=== PATIENT | female | born 1965 | race Caucasian/White ===

== ENCOUNTER 2017-07-21 15:34 | Inpatient (IN) | payer MEDICAID, OTHER ==
[~2017-07-21] VITALS: Ht 149.9 cm; Wt 66.9 kg
--- NOTE | 2017-07-21 15:40 | NUR ---
RT UPPER QUADRANT ABD PAIN X LAST NIGHT, NAD NOTED, VSS, RESP EVEN AND UNLABORED, PT PUT ON MONITOR, WAITING FOR MD WALKER
[2017-07-21] MEDS ORDERED: ONDANSETRON HCL/PF 4 MG/2 ML VIAL ONE (15:52)
[2017-07-21] MEDS ORDERED: HYDROMORPHONE INJ 0.5 MG/0.5 ML SYRINGE ONE ×2 (15:53→18:51)
[2017-07-21] MEDS ORDERED: HYDROMORPHONE INJ 2 MG/ML DISP.SYRIN IV ONE (16:00)
[2017-07-21] MEDS ORDERED: ONDANSETRON HCL/PF 4 MG/2 ML VIAL IVP ONE (16:00)
[2017-07-21] MEDS ORDERED: IV NS 0.9% 1,000 ML BAG IV ONE (16:00)
[2017-07-21 16:07] LABS: BASOPHILS # (AUTO) 0.1 /CMM (0.0-0.2); BASOPHILS % (AUTO) 1.6 % (0.0-2.0); EOSINOPHILS % (AUTO) 0.6 % (0.0-6.0); HEMATOCRIT 37 % (33-45); HEMOGLOBIN 13.1 g/dL (11.5-14.8); LYMPHOCYTES # (AUTO) 1.6 /CMM (0.8-4.8); LYMPHOCYTES % (AUTO) 26.1 % (20.0-44.0); MEAN CORPUSCULAR HEMOGLOBIN 32 PG (26.0-33.0); MEAN CORPUSCULAR HGB CONC 35 g/dl (31.0-36.0); MEAN CORPUSCULAR VOLUME 90 fL (82-100); MONOCYTES # (AUTO) 0.2 /CMM (0.1-1.30); MONOCYTES % (AUTO) 4.1 % (2.0-12.0); NEUTROPHILS # (AUTO) 4.2 /CMM (1.8-8.9); NEUTROPHILS % (AUTO) 67.6 % (43.0-81.0); PLATELET COUNT (AUTO) 277 /CMM (150-450); RDW COEFFICIENT OF VARIATION 12.7 (11.5-15.0); RED BLOOD CELL COUNT(AUTO) 4.11 MIL/uL (4.0-5.2); WHITE BLOOD COUNT (AUTO) 6.1 K/uL (4.3-11.0)
[2017-07-21 16:22] LABS: ALBUMIN 3.4 g/dL (3.4-5.0); CALCIUM, SERUM 8.9 mg/dL (8.5-10.1); CREATININE 0.7 mg/dL (0.6-1.3); POTASSIUM 4.2 mmol/L (3.5-5.1); TOTAL PROTEIN, SERUM 7.4 g/dL (6.4-8.2)
[2017-07-21] MEDS ORDERED: HYDROMORPHONE INJ 0.5 MG/0.5 ML SYRINGE IV ONE (19:00)
--- NOTE | 2017-07-21 19:00 | NUR ---
CALLED , SURGEON AMBULATORY SERVICE REPRESENTATIVE, TRANSFERRED CALL TO
[2017-07-21] MEDS ORDERED: LISI10TA5 PO (19:20)
[2017-07-21] MEDS ORDERED: DULO20CA PO (19:20)
[2017-07-21] MEDS ORDERED: TRAZ-144 PO (19:20)
[2017-07-21] MEDS ORDERED: ARIP2TAB3 PO (19:20)
--- NOTE | 2017-07-21 21:05 | NUR ---
CALLED [facility] FOR TRANSFER UPDATES AND STATED ""AM GLAD I CHECKED MY RECORDS AND PT IS NOT EVEN OUR MEMBER, THERE'S NOTHING IN THE RECORDS THAT SAYS PREFERRED IPA".
[2017-07-21] MEDS ORDERED: HYDROMORPHONE 1 MG/1 ML DISP.SYRIN IV PRN (21:30)
[2017-07-21 21:35] VITALS: BP 114/70
[2017-07-21 21:40] VITALS: BP 114/70
[2017-07-21] MEDS: TRAZODONE 50 MG TABLET PO SCH (22:00)
[2017-07-21] MEDS ORDERED: MAG HYDROX/AL HYDROX/SIMETH 30 ML UDC PO PRN (22:00)
[2017-07-21] MEDS ORDERED: Z GUARD REMEDY 2 OZ OINT TP PRN (22:00)
[2017-07-21] MEDS ORDERED: HYDROMORPHONE INJ 2 MG/ML DISP.SYRIN IV PRN (22:00)
[2017-07-21] MEDS ORDERED: MAGNESIUM HYDROXIDE 30 ML UDC PO PRN (22:00)
--- NOTE | 2017-07-21 22:00 | NUR ---
ADMITTED A 61Y/O F, A, [employer]. BREATHING EVENLY. SKIN WARM AND DRY W/ ONGOING C/O ABD PAIN AND NAUSEA. NO VOMITING EPISODE NOTED. ABLE TO ANSWER ALL QUESTIONS AND PROVIDE HX. NEEDS ATTENDED . BED LOW LOCKED. CALL LIGHT WITHIN REACH. WILL CONT TO MONITOR AND WILL F/U W/ MD'S ORDERS.
[2017-07-21] MEDS ORDERED: ARIPIPRAZOLE 5 MG TABLET PO ONE (22:30)
[2017-07-21] MEDS: HYDROMORPHONE 1 MG/1 ML DISP.SYRIN IV PRN (22:31)
[2017-07-21] MEDS: IV NS 0.9% 1,000 ML IV PRN (22:32)
[2017-07-21] MEDS: ONDANSETRON HCL/PF 4 MG/2 ML VIAL IVP PRN (22:32)
--- NOTE | 2017-07-21 22:32 | NUR ---
ZOFRAN AND DILAUDID GIVEN ORDERED FOR C/O RUQ ABD PAIN AND NAUSEA. WILL CONT TO MONITOR,
--- NOTE | 2017-07-21 22:35 | NUR ---
MARISSA RAY FOR NPO STATUS. Addendum: 07/22/17 at 0103 by APARNA OROZCO RN TYPE ERROR: NO ORDER FOR JOSHUA AT THIS TIME. MARISSA SCHRADER
--- NOTE | 2017-07-22 06:47 | NUR ---
PT IN BED AWAKE AND ALERT. BREATHING EVENLY. NO ACUTE EVENT DURING THE NIGHT . PAIN MEDICATION GIVEN ORDERED PER PT'S REQUEST. EFFECTIVE. NO N/V. NEEDS ATTENDED. BED LOW LOCKED. CALL LIGHT WITHIN REACH. WILL CONT TO MONITOR AND WILL ENDORSE TO AM SHIFT FOR [place].
--- NOTE | 2017-07-22 07:35 | NUR ---
rn opening note. pt received a&0x3 resting in bved. pt npo r/t: hepato biliary HIDA. pt tolerating room air and denies sob with sao2 wnl at 97%. pt reporting a minor headache and moderate pain to ruq. pt with ivc at l ac intact and operational. pt bed in lowest locked position with handrailsx4 and call be within reach. pt briefed on todays poc and is without concern or complaint.
[2017-07-22 08:14] LABS: EOSINOPHILS % (AUTO) 0.2 % (0.0-6.0); MEAN CORPUSCULAR HEMOGLOBIN 31 PG (26.0-33.0); RDW COEFFICIENT OF VARIATION 13.8 (11.5-15.0)
[2017-07-22 08:17] LABS: HEMATOCRIT 37 % (33-45); HEMOGLOBIN 12.6 g/dL (11.5-14.8); MEAN CORPUSCULAR HGB CONC 34 g/dl (31.0-36.0); MEAN CORPUSCULAR VOLUME 92 fL (82-100); MONOCYTES # (AUTO) 0.2 /CMM (0.1-1.30); MONOCYTES % (AUTO) 3.1 % (2.0-12.0); NEUTROPHILS # (AUTO) 6.5 /CMM (1.8-8.9); NEUTROPHILS % (AUTO) 83.7 % (43.0-81.0); PLATELET COUNT (AUTO) 222 /CMM (150-450); RED BLOOD CELL COUNT(AUTO) 4.01 MIL/uL (4.0-5.2); WHITE BLOOD COUNT (AUTO) 7.7 K/uL (4.3-11.0)
[2017-07-22] MEDS: LISINOPRIL (10MG) 10 MG TABLET PO SCH (09:00)
[2017-07-22] MEDS: FAMOTIDINE (20 MG) 20 MG TABLET PO SCH ×2 (09:00→21:17)
[2017-07-22] MEDS: DULOXETINE HCL 20 MG CAPSULE.DR PO SCH (09:00)
[2017-07-22 09:06] LABS: ALBUMIN 3.2 g/dL (3.4-5.0); BILIRUBIN,DIRECT 0.9 mg/dL (0.0-0.2); BILIRUBIN,TOTAL 2.1 mg/dL (0.2-1.0); CALCIUM, SERUM 8.4 mg/dL (8.5-10.1); CREATININE 1.2 mg/dL (0.6-1.3); MAGNESIUM 1.9 mg/dL (1.8-2.4); PHOSPHORUS 4.1 mg/dL (2.5-4.9); POTASSIUM 4.9 mmol/L (3.5-5.1); TOTAL PROTEIN, SERUM 6.9 g/dL (6.4-8.2)
[2017-07-22 09:15] LABS: THYROID STIMULATING HORMONE 1.88 uIU/mL (0.358-3.74)
--- NOTE | 2017-07-22 10:30 | NUR ---
RN NOTES. PT TO NUCLEAR MEDICINE FOR HEPATO BILIARY HIDA.
--- NOTE | 2017-07-22 11:36 | NUR ---
RN NOTES. PT RETURNED FROM NUCLEAR MEDICINE. VITALS STABLE. PRN TYLENOL ADMINISTERED. PT TO RETURN AT 1300.
[2017-07-22] MEDS: ACETAMINOPHEN 325 MG TABLET PO PRN (11:47)
[2017-07-22] MEDS: HYDROMORPHONE 1 MG/1 ML DISP.SYRIN IV PRN ×2 (14:01→18:05)
[2017-07-22] MEDS: ONDANSETRON HCL/PF 4 MG/2 ML VIAL IVP PRN ×2 (14:01→23:43)
[2017-07-22 15:49] VITALS: BP 92/67
[2017-07-22] MEDS: PIPERACILLIN /TAZOBACTAM 3.375 G in IV D5W 50 ML IV SCH ×2 (18:05→23:39)
[2017-07-22] MEDS: IV NS 0.9% 1,000 ML IV PRN (18:07)
--- NOTE | 2017-07-22 19:03 | NUR ---
RN CLOSING NOTE. PT NPO. PT A&0X3 RESTING IN BED AND TOLERATING ROOM AIR, PT REPORTING RIGHT LATERAL PAIN 4/10 POST PRN ADMIN. PT NOW WITH R UA MIDLINE. FAMILY AT BEDSIDE. ALL DAY NURSE DUTIES ATTENDED TO. PT BED IN LOWEST LOCKED POSITION WITH HANDRAILSX2 AND CALL [place] WITHIN REACH. PT IS WITHOUT CONCERN OR COMPLAINT AT THIS TIME.
--- NOTE | 2017-07-22 19:30 | NUR ---
MS RN NOTES PATIENT RECEIVED RESTING INSIDE ROOM, AWAKE, ALERT AND ORIENTED. ABLE TO MAKE NEEDS KNOWN AND FOLLOW SIMPLE INSTRUCTIONS. BREATHING EVEN AND UNLABORED. NO SOB OR ACUTE DISTRESS NOTED AT THIS TIME. PATIENT AFEBRILE, SKIN DRY AND WARM TO TOUCH. NO CHANGES IN LOC NOTED AT THIS TIME. WILL CONTINUE TO MONITOR. BILATERAL UPPER SIDE RAILS UP AND LOCKED. BED LOCKED AND IN LOW POSITION. CALL LIGHT WITHIN EASY REACH
[2017-07-22 20:00] VITALS: BP 127/77
--- NOTE | 2017-07-22 21:06 | NUR ---
PT WAS SEEN BY DR. ANJELICA REDD SURGEON. PER MD, HE WILL TRY TO SEE IF HE CAN FIT HIM IN THE OR SCHEDULE FOR TOMORROW AFTERNOON . IF NOT IT WILL BE DONE THE DAY AFTER, TO KEEP THE PT NPO FOR LAP CHOLECYSTECTOMY.
[2017-07-22] MEDS: TRAZODONE 50 MG TABLET PO SCH (21:17)
[2017-07-22] MEDS: ARIPIPRAZOLE 5 MG TABLET PO SCH (21:17)
--- NOTE | 2017-07-22 23:44 | NUR ---
ZOFRAN GIVEN FOR C/O NAUSEA. NO VOMITING EPISODE. WILL CONT TO MONITOR,
[2017-07-23] VITALS (11 sets, daily range): BP systolic 98–126; BP diastolic 54–76
[2017-07-23] MEDS: PIPERACILLIN /TAZOBACTAM 3.375 G in IV D5W 50 ML IV SCH ×4 (05:58→23:50)
[2017-07-23] MEDS: ONDANSETRON HCL/PF 4 MG/2 ML VIAL IVP PRN ×2 (06:00→14:07)
[2017-07-23 06:17] LABS: BASOPHILS % (AUTO) 0.4 % (0.0-2.0); EOSINOPHILS % (AUTO) 0.1 % (0.0-6.0); HEMATOCRIT 32 % (33-45); HEMOGLOBIN 11.1 g/dL (11.5-14.8); LYMPHOCYTES # (AUTO) 2.1 /CMM (0.8-4.8); MEAN CORPUSCULAR HEMOGLOBIN 32 PG (26.0-33.0); MEAN CORPUSCULAR HGB CONC 35 g/dl (31.0-36.0); MEAN CORPUSCULAR VOLUME 91 fL (82-100); MONOCYTES # (AUTO) 0.3 /CMM (0.1-1.30); MONOCYTES % (AUTO) 4.3 % (2.0-12.0); NEUTROPHILS # (AUTO) 5.2 /CMM (1.8-8.9); NEUTROPHILS % (AUTO) 68.2 % (43.0-81.0); PLATELET COUNT (AUTO) 202 /CMM (150-450); RDW COEFFICIENT OF VARIATION 13.7 (11.5-15.0); RED BLOOD CELL COUNT(AUTO) 3.52 MIL/uL (4.0-5.2); WHITE BLOOD COUNT (AUTO) 7.6 K/uL (4.3-11.0)
[2017-07-23 06:40] LABS: CREATININE 1.2 mg/dL (0.6-1.3); MAGNESIUM 1.5 mg/dL (1.8-2.4); POTASSIUM 3.6 mmol/L (3.5-5.1)
--- NOTE | 2017-07-23 06:42 | NUR ---
MS RN NOTES PATIENT AWAKE, ALERT AND ORIENTED. ABLE TO MAKE NEEDS KNOWN AND FOLLOW SIMPLE INSTRUCTIONS. PATIENT BREATHING EVEN AND UNLABORED. NO SOB OR ACUTE DISTRESS NOTED AT THIS TIME. PATIENT DENIES ANY PAIN OR DISCOMFORT. REMAINS CALM AND RELAXED. AFEBRILE, SKIN DRY AND WARM TO TOUCH. ON NPO STATUS. PATIENT VERBALIZED UNDERSTANDING. WILL CONTINUE TO MONITOR. ALL NURSING NEEDS ATTENDED AND MET. ALL DUE MEDICATIONS GIVEN AND TOLERATED WELL. PROVIDED WITH CALM, SAFE, HAZARD-FREEENVIRONMENT. CALL LIGHT WITHIN EASY REACH. WILL ENDORSE TO INCOMING SHIFT
--- NOTE | 2017-07-23 07:20 | NUR ---
MS/RN Patient received Patient received from shift supervisor film processing. NPO at this time for possible surgery later this evening. All needs attended, will continue to monitor and ensure safety.
--- NOTE | 2017-07-23 07:30 | NUR ---
MS/RN Medications Patient complaining of headache. Tylenol given with small sip of water, will monitor effectiveness.
[2017-07-23] MEDS: FAMOTIDINE (20 MG) 20 MG TABLET PO SCH ×2 (07:42→20:58)
[2017-07-23] MEDS: DULOXETINE HCL 20 MG CAPSULE.DR PO SCH (07:42)
[2017-07-23] MEDS: ACETAMINOPHEN 325 MG TABLET PO PRN (07:42)
[2017-07-23] MEDS: LISINOPRIL (10MG) 10 MG TABLET PO SCH (07:43)
[2017-07-23] MEDS: HYDROMORPHONE 1 MG/1 ML DISP.SYRIN IV PRN ×3 (07:43→18:03)
[2017-07-23] MEDS ORDERED: ANESTHESIA TRAY IN PYXIS 1 EA TRAY MC ONE (09:24)
[2017-07-23] MEDS ORDERED: BUPIVACAINE 0.25% 75 MG/30 ML VIAL ONE (09:24)
[2017-07-23] MEDS ORDERED: LIDOCAINE 0.5% HCL 50 ML VIAL ONE (09:24)
--- NOTE | 2017-07-23 09:34 | NUR ---
MS/RN Consents Consent forms signed, chest x-ray ordered.
--- NOTE | 2017-07-23 10:15 | NUR ---
MS/hydro technician Patient taken to OR, medical record with patient.
[2017-07-23] MEDS ORDERED: MIDAZOLAM HCL 2 MG/2ML VIAL ONE (10:47)
[2017-07-23] MEDS ORDERED: ROCURONIUM BROMIDE 50 MG/5 ML ONE (10:48)
[2017-07-23] MEDS ORDERED: IOHEXOL 240MG/ML 50 ML IV ONE (11:41)
[2017-07-23] MEDS: Magnesium 1GM/D5W 100ML PREMIX 100 ML IV SCH ×2 (13:13→14:13)
--- NOTE | 2017-07-23 13:24 | NUR ---
MS/RN Back to room Patient back in room following surgery. Vital signs recorded as per hospital protocal, saturation 100% on two liters. Respirations swallow, pain medication held due to this. Given IS, educated on how to use, and asked to use 10 times every hour. IV fluids infusing, magnesium also infusing as mag level 1.5. Lap sites X3, two open to air, one with KRISTA drain with minimal output at this time. Call light within reach, side rails X3 in upright position, brakes locked. Ice chips and water provided, diet now changed to clear liquids. Will continue to monitor.
--- NOTE | 2017-07-23 14:21 | NUR ---
MS/RN Abdominal pain Continues to complain of abdominal pain, dilaudid 1mg given IV , will monitor effectiveness.
[2017-07-23] MEDS: IV NS 0.9% 1,000 ML IV PRN (17:37)
--- NOTE | 2017-07-23 18:35 | NUR ---
MS/RN End note Has remained stable since surgery, vital signs within normal range, pain medication given as needed. Three lap sites, two open to air, third with KRISTA drain - 50ml output this shift. All needs attended, will endorse to security shift manager.
--- NOTE | 2017-07-23 19:54 | NUR ---
MS2/RN RECEIVE PATIENT AWAKE, ALERT, ORIENTED, COMFORTABLE, NO C/O PAIN AT THIS TIME, NO SIGNS OF DISTRESS NOTED, LAP SITES X 2 ARE CLEAN AND DRY OPEN TO AIR, KRISTA DRAIN WITH SEROSANGUINEOUS OUTPUT. WILL MONITOR.
[2017-07-23] MEDS: ARIPIPRAZOLE 5 MG TABLET PO SCH (20:58)
[2017-07-23] MEDS: HYDROCODONE/APAP 5/325MG 1 EACH TABLET PO PRN (20:58)
[2017-07-23] MEDS: TRAZODONE 50 MG TABLET PO SCH (20:58)
--- NOTE | 2017-07-23 22:06 | NUR ---
MS2/RN PATIENT IS SLEEPING AT THIS TIME, AROUSABLE, APPEAR COMFORTABLE, NO SIGNS OF DISTRESS NOTED, CALL LIGHT IN REACH. WILL CONTINUE TO MONITOR.
[2017-07-24] MEDS: IV NS 0.9% 1,000 ML IV PRN (05:26)
[2017-07-24] MEDS: HYDROCODONE/APAP 5/325MG 1 EACH TABLET PO PRN (05:26)
[2017-07-24] MEDS: PIPERACILLIN /TAZOBACTAM 3.375 G in IV D5W 50 ML IV SCH ×3 (05:50→17:31)
--- NOTE | 2017-07-24 06:30 | NUR ---
MS2/RN PATIENT IS SLEEPING AT THIS TIME, EASILY AROUSABLE, APPEAR COMFORTABLE, NO SIGNS OF DISTRESS NOTED, CALL LIGHT IN REACH. ALL NEEDS ATTENDED AT THIS TIME. WILL CONTINUE TO MONITOR.
[2017-07-24 06:33] LABS: BASOPHILS % (AUTO) 0.2 % (0.0-2.0); HEMATOCRIT 32 % (33-45); HEMOGLOBIN 10.8 g/dL (11.5-14.8); LYMPHOCYTES # (AUTO) 1.6 /CMM (0.8-4.8); LYMPHOCYTES % (AUTO) 17.7 % (20.0-44.0); MEAN CORPUSCULAR HEMOGLOBIN 32 PG (26.0-33.0); MEAN CORPUSCULAR HGB CONC 34 g/dl (31.0-36.0); MEAN CORPUSCULAR VOLUME 93 fL (82-100); MONOCYTES # (AUTO) 0.4 /CMM (0.1-1.30); MONOCYTES % (AUTO) 4.5 % (2.0-12.0); NEUTROPHILS % (AUTO) 77.6 % (43.0-81.0); PLATELET COUNT (AUTO) 177 /CMM (150-450); RDW COEFFICIENT OF VARIATION 13.9 (11.5-15.0)
--- NOTE | 2017-07-24 07:30 | NUR ---
RN MS NOTES PT IN BED, AWAKE, ALERT AND ORIENTED, NO COMPLAINT OF PAIN, BREATHING PATTERN NORMAL AND NOT LABORED, IV FLUIDS INFUSING WELL, CALL LIGHT WITHIN REACH.
[2017-07-24 08:00] VITALS: BP 136/74
[2017-07-24 08:07] LABS: CALCIUM, SERUM 8.2 mg/dL (8.5-10.1); CREATININE 1.2 mg/dL (0.6-1.3)
[2017-07-24 08:13] LABS: ALBUMIN 2.8 g/dL (3.4-5.0); BILIRUBIN,TOTAL 0.7 mg/dL (0.2-1.0); TOTAL PROTEIN, SERUM 6.3 g/dL (6.4-8.2)
[2017-07-24] MEDS: LISINOPRIL (10MG) 10 MG TABLET PO SCH (08:28)
[2017-07-24] MEDS: DULOXETINE HCL 20 MG CAPSULE.DR PO SCH (08:28)
[2017-07-24] MEDS: FAMOTIDINE (20 MG) 20 MG TABLET PO SCH (08:28)
[2017-07-24] MEDS: HYDROMORPHONE 1 MG/1 ML DISP.SYRIN IV PRN (10:53)
[2017-07-24] MEDS ORDERED: HYDR-552 PO (12:25)
--- NOTE | 2017-07-24 13:00 | NUR ---
RN MS NOTES PT IN BED, AWAKE, ALERT AND ORIENTED, NO COMPLAINT OF PAIN AT THIS TIME, RESPIRATIONS NORMAL, IV FLUIDS INFUSING WELL, KRISTA DRAIN AT RIGHT SIDE DRAINING WITH REDDISH DRAIN, SEEN AND EXAMINED BY TIFFANY TIRE SORTER, DISCHARGE ORDER GIVEN, PT TO BE SEEN BY SURGERY BEFORE DISCHARGE, DISCHARGE AND MEDICATION INSTRUCTIONS PROVIDED TO PT, VERBALIZED UNDERSTANDING, CALL LIGHT WITHIN REACH, NEEDS ATTENDED.
[2017-07-24] MEDS ORDERED: FLU VACC QS 2017-18(36MOS+)/PF 0.5 ML DISP.SYRIN IM ONE (14:00)
[2017-07-24 16:00] VITALS: BP 134/83
[2017-07-24] MEDS ORDERED: HYDROMORPHONE INJ 0.5 MG/0.5 ML SYRINGE IV PRN (16:22)
--- NOTE | 2017-07-24 19:00 | NUR ---
RN MS NOTES PT TEACHING DONE REGARDING EXPTYING AND MEASURING HER KRISTA DRAIN, VERBALIZED UNDERSTANDING, ABLE TO RETURN DEMO.
--- NOTE | 2017-07-24 19:00 | NUR ---
RN MS NOTES PT READY TO GO HOME, NO COMPLAINT OF PAIN, NOT IN DISTRESS, BELONGINGS ACCOUNTED FOR, DISCHARGE FORMS SIGNED, DISCHARGE AND MEDICATION INSTRUCTIONS WELL FOLLOW UPS TO SURGEON AND PCP EXPLAINED TO PT, VERBALIZED UNDERSTANDING, ASSISTED TO HOSPITAL LOBBY VIA WHEELCHAIR, LEFT IN STABLE CONDITION VIA PRIVATE CAR ACCOMPANIED BY FAMILY.
== END 2017-07-24 18:52 | disposition home or self-care (01) | DRG 263 ==
LOC: ER 15:36 → MEDSG2 21:21
PROVIDERS: ADMIT Nurse Practitioner Acute Care; ATTEND Nurse Practitioner Acute Care
DX: K80.00 Calculus of gallbladder with acute cholecystitis without obstruction (principal); E88.09 Other disorders of plasma-protein metabolism, not elsewhere classified; I10 Essential (primary) hypertension; E83.42 Hypomagnesemia; E66.9 Obesity, unspecified; R74.0 Nonspecific elevation of levels of transaminase and lactic acid dehydrogenase [LDH]; E80.6 Other disorders of bilirubin metabolism; F32.9 Major depressive disorder, single episode, unspecified; Z68.29 Body mass index [BMI] 29.0-29.9, adult; Z71.3 Dietary counseling and surveillance; Z82.49 Family history of ischemic heart disease and other diseases of the circulatory system; Z83.3 Family history of diabetes mellitus
CPT/HCPCS: 36415; 36569; 71045-TC; 74018; 76705-TC; 78226; 80048-TC; 80053-TC; 80061-TC; 80076-TC; 82652; 83690-TC; 83735-TC; 84100-TC; 84443-TC; 84703-TC; 85025-TC; 87081-TC; 88304-TC; 88305-TC; 88307-TC; 88313-TC; A4606; A9537; J1100; J1170; J1885; J2250; J2405; J2543; J2704; J2710; J3475; J3490; J7030; J7060; Q2036; Q9966; Z7610

== ENCOUNTER 2020-02-18 11:06 | Emergency (ER) | payer OTHER ==
[~2020-02-18] VITALS: Ht 149.9 cm; Wt 65.8 kg
[~2020-02-18 11:06] MED LIST: ARIP2TAB3 PO; DULO20CA PO; HYDR-4384 PO; LISI10TA5 PO; TRAZ-182 PO
[2020-02-18] MEDS ORDERED: KETOROLAC TROMETHAMINE 15 MG/ML VIAL ONE (11:32)
[2020-02-18 11:58] LABS: BASOPHILS % (AUTO) 0.8 % (0.0-2.0); EOSINOPHILS % (AUTO) 1.1 % (0.0-6.0); HEMATOCRIT 41 % (33-45); HEMOGLOBIN 13.7 g/dL (11.5-14.8); MEAN CORPUSCULAR HGB CONC 33 g/dl (31.0-36.0); MEAN CORPUSCULAR VOLUME 95 fL (82-100); MONOCYTES # (AUTO) 0.4 /CMM (0.1-1.30); MONOCYTES % (AUTO) 5.6 % (2.0-12.0); NEUTROPHILS # (AUTO) 2.9 /CMM (1.8-8.9); NEUTROPHILS % (AUTO) 45.5 % (43.0-81.0); PLATELET COUNT (AUTO) 177 /CMM (150-450); RED BLOOD CELL COUNT(AUTO) 4.32 MIL/uL (4.0-5.2); WHITE BLOOD COUNT (AUTO) 6.3 K/uL (4.3-11.0)
[2020-02-18] MEDS: KETOROLAC TROMETHAMINE INJ 30 MG/ML VIAL IV ONE (12:03)
--- NOTE | 2020-02-18 12:04 | NUR ---
MEDICATED PER ERMD ORDER, PT JOSE M WELL. ON TELE, SR. WILL CONT TO MONITOR.
[2020-02-18 12:12] LABS: CALCIUM, SERUM 9.3 mg/dL (8.5-10.1); CARBON DIOXIDE 24 mmol/L (21-32); CHLORIDE 104 mmol/L (98-107); CREATININE 0.8 mg/dL (0.6-1.3); GLUCOSE 90 mg/dL (74-106); POTASSIUM 3.9 mmol/L (3.5-5.1); SODIUM SERUM 138 mmol/L (136-145); UREA NITROGEN, BLOOD 12 mg/dL (7-18)
[2020-02-18 13:04] VITALS: BP 132/74
--- NOTE | 2020-02-18 13:04 | NUR ---
Patient discharged to home in stable condition. Written and verbal after care instructions given. Patient verbalizes understanding of instruction. IV removed. Catheter intact and site benign. Pressure and 4x4 applied to site. No bleeding noted.
== END 2020-02-18 13:05 | disposition home or self-care (01) ==
LOC: ER 11:09
DX: R07.89 Other chest pain (principal); G43.909 Migraine, unspecified, not intractable, without status migrainosus; I10 Essential (primary) hypertension; F32.9 Major depressive disorder, single episode, unspecified; Z98.890 Other specified postprocedural states; Z79.899 Other long term (current) drug therapy
CPT/HCPCS: 36415; 71045; 80048; 84484; 85025; 93005; 96374; 99285; J1885